=== PATIENT | male | born 1990 | race Caucasian/White ===

== ENCOUNTER 2017-06-30 08:55 | Emergency (ER) | payer MEDICARE, MEDICAID ==
[~2017-06-30] VITALS: Ht 185.4 cm; Wt 67.0 kg
[~2017-06-30 08:55] MED LIST: HYDR50TA13 PO; OLAN20TA3 PO; OMEPRAZOLE; PROZAC; TRAZ150T62 PO
[2017-06-30 09:00] VITALS: BP 131/82
[2017-06-30] MEDS ORDERED: ASPIRIN 81 MG TABLET CHEW PO ONE (09:30)
[2017-06-30] MEDS ORDERED: ASPIRIN 81 MG TABLET CHEW ONE (09:39)
[2017-06-30 09:56] LABS: HEMATOCRIT 42.2 % (39.2-51.8); HEMOGLOBIN 14.3 g/dL (13.7-18.0)
[2017-06-30 10:08] LABS: BLOOD UREA NITROGEN 14 mg/dL (7-18)
[2017-06-30 10:12] LABS: IS PT STATUS REG ER OR PRE ER? YES
[2017-06-30] MEDS ORDERED: KETOROLAC 30 MG/1 ML ONE (11:15)
[2017-06-30] MEDS ORDERED: KETOROLAC 30 MG/1 ML IVPush ONE (11:30)
== END 2017-06-30 12:22 | disposition home or self-care (01) ==
LOC: ED 09:54
DX: R07.89 Other chest pain (principal); R42 Dizziness and giddiness; K21.9 Gastro-esophageal reflux disease without esophagitis; Z88.8 Allergy status to other drugs, medicaments and biological substances; F17.210 Nicotine dependence, cigarettes, uncomplicated
CPT/HCPCS: 36415; 71020; 80048; 82040; 84484; 85025; 93005; 96374; 99285; J1885

== ENCOUNTER 2017-09-03 13:47 | Emergency (ER) | payer MEDICARE, MEDICAID ==
[~2017-09-03] VITALS: Ht 182.9 cm; Wt 67.1 kg
[2017-09-03 13:49] VITALS: BP 121/89
[2017-09-03] MEDS ORDERED: HYDROcodone/APAP 5/325 TABLET PO ONE (15:30)
[2017-09-03] MEDS ORDERED: HYDROcodone/APAP 5/325 TABLET ONE (15:43)
== END 2017-09-03 16:07 | disposition home or self-care (01) ==
LOC: ED 16:04
DX: S16.1XXA Strain of muscle, fascia and tendon at neck level, initial encounter (principal); S29.012A Strain of muscle and tendon of back wall of thorax, initial encounter; K21.9 Gastro-esophageal reflux disease without esophagitis; F31.9 Bipolar disorder, unspecified; Z88.8 Allergy status to other drugs, medicaments and biological substances; V43.53XA Car driver injured in collision with pick-up truck in traffic accident, initial encounter; Y93.89 Activity, other specified; Y99.8 Other external cause status; Y92.488 Other paved roadways as the place of occurrence of the external cause
CPT/HCPCS: 72020; 72050; 72072; 99284

== ENCOUNTER 2017-10-15 20:06 | Emergency (ER) | payer MEDICARE, MEDICAID ==
[~2017-10-15] VITALS: Ht 177.8 cm; Wt 70.0 kg
[2017-10-15] MEDS ORDERED: SODIUM CHLORIDE FLUSH 10ML SYR IVF ONE (20:30)
[2017-10-15] MEDS ORDERED: SODIUM CHLORIDE 0.9% 1,000ML IVBOLUS ONE (20:30)
[2017-10-15] MEDS ORDERED: ONDANSETRON ODT 8 MG PO ONE (20:30)
[2017-10-15] MEDS ORDERED: MAALOX/HYOSCYAMINE/LIDOCAINE 45 ML BTL PO ONE (20:30)
[2017-10-15] MEDS ORDERED: FAMOTIDINE 20 MG/2 ML IVP ONE (20:30)
[2017-10-15] MEDS ORDERED: ONDANSETRON ODT 8 MG ONE (20:46)
[2017-10-15] MEDS ORDERED: MAALOX/HYOSCYAMINE/LIDOCAINE 45 ML BTL ONE (20:46)
[2017-10-15] MEDS ORDERED: FAMOTIDINE 20 MG/2 ML ONE (20:46)
[2017-10-15 21:26] VITALS: BP 120/70
== END 2017-10-15 21:28 | disposition home or self-care (01) ==
LOC: ED 21:05
DX: J06.9 Acute upper respiratory infection, unspecified (principal); R11.2 Nausea with vomiting, unspecified; R19.7 Diarrhea, unspecified; K21.9 Gastro-esophageal reflux disease without esophagitis; J44.9 Chronic obstructive pulmonary disease, unspecified
CPT/HCPCS: 71046; 96374; 99284; J7030; S0028

== ENCOUNTER 2019-03-03 20:02 | Emergency (ER) | payer MEDICAID, MEDICARE ==
[~2019-03-03] VITALS: Ht 185.4 cm; Wt 65.0 kg
[2019-03-03 20:05] VITALS: BP 127/65
== END 2019-03-03 23:21 | disposition home or self-care (01) ==
LOC: ED 23:18
DX: F32.0 Major depressive disorder, single episode, mild (principal); F10.10 Alcohol abuse, uncomplicated; K21.9 Gastro-esophageal reflux disease without esophagitis; J44.9 Chronic obstructive pulmonary disease, unspecified; Z72.9 Problem related to lifestyle, unspecified; Z75.9 Unspecified problem related to medical facilities and other health care; Z91.14 Patient's other noncompliance with medication regimen; Z63.8 Other specified problems related to primary support group; Y90.9 Presence of alcohol in blood, level not specified
CPT/HCPCS: 36415; 80048; 80307; 85025; 99284

== ENCOUNTER 2020-01-20 00:20 | Emergency (ER) | payer MEDICARE ==
[~2020-01-20] VITALS: Ht 182.9 cm; Wt 62.0 kg
[~2020-01-20 00:20] MED LIST changes: +GABA300C10 PO; -HYDR50TA13 PO; +HYDR50TA99 PO
--- NOTE | 2020-01-20 00:35 | NUR ---
[facility] SECURED, DR TREVINO TO BEDSIDE. PT REMAINS TEARFUL
--- NOTE | 2020-01-20 00:50 | NUR ---
assumed care of pt. pt BIB [employer] on hold. pt states that he is vey intoxicated and that he "fuckin hates life right now". pt has a small abrasion to R upper posterio arm. cleaned and bandaid applied. pt yelling and swearing. attempting to re-orient patient. no other injuries. no apparent resp. distress
--- NOTE | 2020-01-20 01:00 | NUR ---
pt moved from room 4 to room 2. room secure. sitter present for safety.
[2020-01-20 01:03] LABS: BASOPHILS # (AUTO) 0.04 x10^3/uL (0-0.1); BASOPHILS % (AUTO) 1 % (0-1); EOSINOPHILS # (AUTO) 0.47 x10^3/uL (0-0.4); EOSINOPHILS % (AUTO) 9 % (1-7); LYMPHOCYTES # (AUTO) 2.65 x10^3/uL (1-3.4); LYMPHOCYTES % (AUTO) 48 % (22-44); MD NO; MEAN CORPUSCULAR HEMOGLOBIN 33.2 pg (27.5-34.5); MEAN CORPUSCULAR HGB CONC 34.2 g/dL (33.2-36.2); MEAN CORPUSCULAR VOLUME 96.9 fL (81-97); MEAN PLATELET VOLUME 8.8 fL (7.4-10.4); MONOCYTES # (AUTO) 0.45 x10^3/uL (0.2-0.8); MONOCYTES % (AUTO) 8 % (2-9); NEUTROPHILS # (AUTO) 1.96 x10^3/uL (1.8-6.8); NEUTROPHILS % (AUTO) 35 % (42-75); PLATELET COUNT 158 x10^3/uL (130-400); RED BLOOD COUNT 4.88 x10^6/uL (4.38-5.82); RED CELL DISTRIBUTION WIDTH 14.4 % (9.4-14.8)
[2020-01-20 01:12] LABS: ALBUMIN 4.1 g/dL (3.4-5.0); ANION GAP 7 mmol/L (5-15); CHLORIDE 106 mmol/L (98-107); CREATININE 0.92 mg/dL (0.7-1.3); SALICYLATE LEVEL 2.4 mg/dL (2.8-20.0)
--- NOTE | 2020-01-20 01:20 | NUR ---
urine sample has been collected and sent. warm blankets given for comfort.
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
[2020-01-20 01:53] LABS: AMPHETAMINE SCREEN, URINE Negative (Negative); BARBITURATE SCREEN, URINE Negative (Negative); BENZODIAZEPINE SCREEN, URINE Positive (Negative); CANNABINOID SCREEN, URINE Negative (Negative); COCAINE SCREEN, URINE Negative (Negative); METHADONE SCREEN, URINE Negative (Negative); OPIATE SCREEN, URINE Negative (Negative)
--- NOTE | 2020-01-20 01:55 | NUR ---
pt now calmer and more cooperative
--- NOTE | 2020-01-20 02:10 | NUR ---
pt given PO fluids and crackers
--- NOTE | 2020-01-20 02:32 | NUR ---
pt sleeping in position of comfort. no apparent distress. room secure. sitter present for safety
--- NOTE | 2020-01-20 03:45 | NUR ---
attempted to deliver food to pt bedside, pt sleeping
--- NOTE | 2020-01-20 04:45 | NUR ---
pt still seeping. no apparent distress. room secure. sitter at bedside for safety
[2020-01-20 06:02] VITALS: BP 110/61
--- NOTE | 2020-01-20 06:02 | NUR ---
pt sleeping. arousable but groggy. no new c/o. no apparent distress. room secure. sitter present for safety
--- NOTE | 2020-01-20 06:56 | NUR ---
report to Sherman VILCHIS
--- NOTE | 2020-01-20 07:34 | NUR ---
REPORT FROM JOSH
--- NOTE | 2020-01-20 08:30 | NUR ---
PT BREATHALYZER 0.805, MODETER PRESENT
--- NOTE | 2020-01-20 09:20 | NUR ---
PT GIVEN MEAL TRAY. PT STAES HE FEELS SUICIDAL
[2020-01-20] MEDS ORDERED: LORazepam 1MG TABLET ONE (10:25)
[2020-01-20] MEDS ORDERED: LORazepam 1MG TABLET PO ONE (10:30)
--- NOTE | 2020-01-20 10:44 | NUR ---
MEDICATED FOR ANXIETY,. PT STATES HE IS WDRAWLING
--- NOTE | 2020-01-20 11:43 | NUR ---
PT RESTING, ORDERED LUNCH TRAY. SITTER PRESENT
--- NOTE | 2020-01-20 12:30 | NUR ---
PT RESTING, MEAL TRAY GIVEN. SITTER PRESENT
--- NOTE | 2020-01-20 13:30 | NUR ---
PT RESTING. SITTER PRESENT
[2020-01-20] MEDS ORDERED: LORazepam 1MG TABLET PO PRN (14:00)
[2020-01-20] MEDS ORDERED: NICOTINE 21 MG/24 HR PATCH.TD24 TD SCH (14:00)
[2020-01-20] MEDS ORDERED: HYDROXYZINE PAMOATE 50MG CAP PO PRN (14:00)
--- NOTE | 2020-01-20 14:21 | NUR ---
PT RESTING, NO NEEDS AT THIS TIME. SITTER PRESENT
--- NOTE | 2020-01-20 15:00 | NUR ---
PT RESTING, WATCHING TV. SITTER PRESENT
[2020-01-20] MEDS ORDERED: NICOTINE 21 MG/24 HR PATCH.TD24 ONE (16:12)
--- NOTE | 2020-01-20 16:19 | NUR ---
REPORT TO [facility]
--- NOTE | 2020-01-20 17:36 | NUR ---
THIS TECH TRANSPORTED PT
[2020-01-20] MEDS ORDERED: TRAZ50TA66 PO (18:02)
== END 2020-01-20 17:36 ==
LOC: ED 10:21
DX: F10.129 Alcohol abuse with intoxication, unspecified (principal); Y90.9 Presence of alcohol in blood, level not specified; Z72.9 Problem related to lifestyle, unspecified; F17.200 Nicotine dependence, unspecified, uncomplicated; J44.9 Chronic obstructive pulmonary disease, unspecified
CPT/HCPCS: 36415; 80048; 80307; 82040; 85025; 99285

== ENCOUNTER 2020-01-20 13:36 | Inpatient (IN) | payer MEDICARE ==
[~2020-01-20] VITALS: Ht 182.9 cm; Wt 62.5 kg
[2020-01-20 17:24] VITALS: BP 114/81
[2020-01-20] MEDS ORDERED: TRAZODONE 50MG TABLET PO PRN (18:00)
[2020-01-20] MEDS ORDERED: TRAZ50TA66 PO (18:02)
[2020-01-20 19:48] VITALS: BP 127/89
[2020-01-20 19:58] LABS: MICROSCOPIC AUTO
[2020-01-20] MEDS: IBUPROFEN 200 MG TABLET PO PRN (21:30)
[2020-01-20] MEDS: DIAZEPAM 10 MG TABLET PO SCH (21:30)
[2020-01-20] MEDS: NICOTINE 21 MG/24 HR PATCH.TD24 TD SCH (21:30)
[2020-01-20] MEDS: ACAMPROSATE 333 MG TABLET.DR PO SCH (21:31)
[2020-01-21 07:47] VITALS: BP 128/77
[2020-01-21] MEDS: ACAMPROSATE 333 MG TABLET.DR PO SCH ×4 (08:55→23:01)
[2020-01-21] MEDS: DIAZEPAM 10 MG TABLET PO SCH ×3 (08:55→20:32)
[2020-01-21] MEDS: IBUPROFEN 200 MG TABLET PO PRN (08:56)
[2020-01-21] MEDS ORDERED: NICOTINE 21 MG/24 HR PATCH.TD24 TD SCH (09:00)
[2020-01-21] MEDS ORDERED: QUETIAPINE 25MG TABLET PO PRN (14:00)
[2020-01-21 19:04] VITALS: BP 119/79
[2020-01-21] MEDS: NICOTINE 21 MG/24 HR PATCH.TD24 TD SCH ×2 (20:32→23:00)
[2020-01-22] MEDS: IBUPROFEN 200 MG TABLET PO PRN (02:38)
[2020-01-22] MEDS: DIAZEPAM 10 MG TABLET PO SCH ×2 (02:53→08:34)
[2020-01-22 07:56] VITALS: BP 126/91
[2020-01-22] MEDS: ACAMPROSATE 333 MG TABLET.DR PO SCH (08:35)
[2020-01-22] MEDS: ACAMPROSATE 333 MG TABLET.DR PO ONE ×2 (08:48→09:00)
== END 2020-01-22 09:25 | disposition home or self-care (01) | DRG 885 ==
LOC: 3E 17:06
PROVIDERS: ADMIT Psychiatry & Neurology Psychosomatic Medicine; ATTEND Psychiatry & Neurology Psychosomatic Medicine
DX: F31.30 Bipolar disorder, current episode depressed, mild or moderate severity, unspecified (principal); E44.0 Moderate protein-calorie malnutrition; R45.851 Suicidal ideations; Z68.1 Body mass index [BMI] 19.9 or less, adult; Z88.8 Allergy status to other drugs, medicaments and biological substances; F10.20 Alcohol dependence, uncomplicated; F17.200 Nicotine dependence, unspecified, uncomplicated; F41.9 Anxiety disorder, unspecified; G47.30 Sleep apnea, unspecified; G89.29 Other chronic pain; J44.9 Chronic obstructive pulmonary disease, unspecified; M41.9 Scoliosis, unspecified; Z82.5 Family history of asthma and other chronic lower respiratory diseases; Z91.19 Patient's noncompliance with other medical treatment and regimen
CPT/HCPCS: 81001; 87086; 93005

== ENCOUNTER 2020-06-18 19:53 | Emergency (ER) | payer MEDICARE ==
[~2020-06-18] VITALS: Ht 182.9 cm; Wt 61.4 kg
[~2020-06-18 19:53] MED LIST changes: +TRAZ50TA66 PO
--- NOTE | 2020-06-18 20:08 | NUR ---
COUNTY ENGINEER AWARE OF PT. PT DENIES SI. COOPERATIVE. PLACED IN LOBBY.
[2020-06-18 21:24] VITALS: BP 125/75
--- NOTE | 2020-06-18 21:25 | NUR ---
pt states he is homeless, and has been drinking alot lately. pt states drinking 3 tall boys and 2 pints of vodka today. pt a/0 x 4. resting comfortably in [facility], [facility] evaluated
== END 2020-06-18 21:43 | disposition home or self-care (01) ==
LOC: ED 21:10
DX: J69.0 Pneumonitis due to inhalation of food and vomit (principal); F10.10 Alcohol abuse, uncomplicated; R11.2 Nausea with vomiting, unspecified; R42 Dizziness and giddiness; F17.210 Nicotine dependence, cigarettes, uncomplicated; J44.9 Chronic obstructive pulmonary disease, unspecified; K21.9 Gastro-esophageal reflux disease without esophagitis; Y90.0 Blood alcohol level of less than 20 mg/100 ml
CPT/HCPCS: 71045; 99283; 99406

== ENCOUNTER 2021-01-05 19:49 | Emergency (ER) | payer MEDICARE ==
[~2021-01-05] VITALS: Ht 182.9 cm; Wt 68.0 kg
--- NOTE | 2021-01-05 20:08 | NUR ---
Patient presents to ER c/o FB in throat. Patient states he attempted to eat a hot dog in a bun and it got stuck in his throat. Now he is having cough, diff swallowing, and pain in chest when swallowing. Patient has a hx of the same x2 years ago and wasy scoped with FB removal. Patient is in NAD. Respirations even and unlabored. Patient speaking in full word sentences. No hoarse voice, no drooling.
[2021-01-05] MEDS ORDERED: KETAMINE 10 MG/ML, 20ML IV ONE (22:00)
[2021-01-05] MEDS ORDERED: MIDAZOLAM 1 MG/ML, 5ML IVPush ONE (22:00)
[2021-01-05] MEDS ORDERED: KETAMINE 10 MG/ML, 20ML ONE (22:07)
[2021-01-05] MEDS ORDERED: MIDAZOLAM 1 MG/ML, 5ML ONE (22:21)
[2021-01-05] MEDS ORDERED: PROPOFOL 10 MG/ML, 20ML ONE (22:36)
--- NOTE | 2021-01-05 22:45 | NUR ---
Patient prepped for procedural sedation.
--- NOTE | 2021-01-05 22:55 | NUR ---
Patient tolerated procedure well. Patient AAOx4. No supp O2 required to maintain airway.
[2021-01-05] MEDS ORDERED: PROPOFOL 10 MG/ML, 20ML IVPush ONE (23:00)
[2021-01-05 23:11] VITALS: BP 103/64
--- NOTE | 2021-01-05 23:42 | NUR ---
Discharge instructions given. All questions and concerns addressed. Patient ambulatory with a steady gait. Belongings with patient.
== END 2021-01-05 23:46 | disposition home or self-care (01) ==
LOC: ED 23:37
DX: T18.128A Food in esophagus causing other injury, initial encounter (principal); K21.00 Gastro-esophageal reflux disease with esophagitis, without bleeding; F10.10 Alcohol abuse, uncomplicated; Y90.0 Blood alcohol level of less than 20 mg/100 ml; Z72.9 Problem related to lifestyle, unspecified; J44.9 Chronic obstructive pulmonary disease, unspecified; F17.200 Nicotine dependence, unspecified, uncomplicated; X58.XXXA Exposure to other specified factors, initial encounter; Y93.89 Activity, other specified; Y92.89 Other specified places as the place of occurrence of the external cause; Y99.8 Other external cause status
CPT/HCPCS: 99285

== ENCOUNTER 2021-01-12 18:43 | Emergency (ER) | payer MEDICARE, MEDICAID ==
[~2021-01-12] VITALS: Ht 182.9 cm; Wt 68.3 kg
--- NOTE | 2021-01-12 22:31 | NUR ---
[facility] REPAIR PERSON: PT. TO ROOM FROM LOBBY AT THIS TIME.
--- NOTE | 2021-01-12 22:45 | NUR ---
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 pt states he wants to quit drinking, but he can't go back to rehab or he'll get kicked out of his house. pt resting on gurney, placed in gown and placed on continuous monitoring. ERP at bedside. 20 G IV started to the right forearm, IVF running and meds given. denies needs at this time.
[2021-01-12] MEDS ORDERED: ONDANSETRON 2MG/ML, 2ML ONE (22:53)
[2021-01-12] MEDS ORDERED: LORazepam 2 MG/ML, 1ML ONE (22:53)
[2021-01-12] MEDS ORDERED: SODIUM CHLORIDE 0.9% 1,000ML IVBOLUS ONE (23:00)
[2021-01-12] MEDS ORDERED: LORazepam 2 MG/ML, 1ML IVPush ONE (23:00)
[2021-01-12] MEDS ORDERED: ONDANSETRON 2MG/ML, 2ML IVPush ONE (23:00)
[2021-01-12 23:03] LABS: BASOPHILS % (AUTO) 1 % (0-1); EOSINOPHILS % (AUTO) 2 % (1-7); LYMPHOCYTES % (AUTO) 21 % (22-44); MEAN CORPUSCULAR HEMOGLOBIN 32.3 pg (27.5-34.5); MEAN PLATELET VOLUME 8.8 fL (7.4-10.4); MONOCYTES % (AUTO) 7 % (2-9); NEUTROPHILS % (AUTO) 69 % (42-75); PLATELET COUNT 207 x10^3/uL (130-400); RED BLOOD COUNT 4.65 x10^6/uL (4.38-5.82); RED CELL DISTRIBUTION WIDTH 14.6 % (9.4-14.8)
[2021-01-12 23:08] LABS: ALBUMIN 4.1 g/dL (3.4-5.0); ANION GAP 9 mmol/L (5-15); CHLORIDE 112 mmol/L (98-107)
[2021-01-12 23:11] LABS: ALANINE AMINOTRANSFERASE 32 U/L (12-78); ALKALINE PHOSPHATASE 59 U/L (45-117); CREATININE 0.89 mg/dL (0.7-1.3); TOTAL PROTEIN 7.4 g/dL (6.4-8.2)
[2021-01-13] VITALS: BP 111/67
== END 2021-01-13 01:08 | disposition home or self-care (01) ==
LOC: ED 01-13 00:10
DX: K29.20 Alcoholic gastritis without bleeding (principal); F10.139 Alcohol abuse with withdrawal, unspecified; R45.4 Irritability and anger; K21.9 Gastro-esophageal reflux disease without esophagitis; J44.9 Chronic obstructive pulmonary disease, unspecified; F17.200 Nicotine dependence, unspecified, uncomplicated; Y90.0 Blood alcohol level of less than 20 mg/100 ml
CPT/HCPCS: 36415; 80053; 80320; 83690; 85025; 93005; 96361; 96374; 96375; 99284; J2060; J2405; J7030; G0480

== ENCOUNTER 2021-01-31 03:30 | Emergency (ER) | payer MEDICARE, MEDICAID ==
[~2021-01-31] VITALS: Ht 182.9 cm; Wt 70.0 kg
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
--- NOTE | 2021-01-31 03:46 | NUR ---
Pt c/o substernal CP that started at 0130. Pt presents intoxicated and is intermittently crying, "I don't want to go to skilled nursing." Pt also c/o PATTEN and nausea. 4mg Zofran given BODY MAN.
--- NOTE | 2021-01-31 03:54 | NUR ---
MEDS REQUESTED FROM PHARMACY.
[2021-01-31] MEDS ORDERED: FAMOTIDINE 20 MG/2 ML ONE (03:55)
[2021-01-31] MEDS ORDERED: ONDANSETRON 2MG/ML, 2ML ONE (03:55)
[2021-01-31] MEDS ORDERED: SODIUM CHLORIDE 0.9% 1,000ML IVBOLUS ONE (04:00)
[2021-01-31] MEDS ORDERED: THIAMINE 100 MG in SODIUM CHLORIDE 0.9% 50 ML IVPB ONE (04:00)
[2021-01-31] MEDS ORDERED: MAALOX/HYOSCYAMINE/LIDOCAINE 45 ML BTL PO ONE (04:00)
[2021-01-31] MEDS ORDERED: ONDANSETRON 2MG/ML, 2ML IVPush ONE (04:00)
[2021-01-31] MEDS ORDERED: FAMOTIDINE 20 MG/2 ML IVPush ONE (04:00)
[2021-01-31] MEDS ORDERED: SODIUM CHLORIDE FLUSH 10ML SYR IVF ONE (04:00)
--- NOTE | 2021-01-31 04:00 | NUR ---
PT REQUESTING MEDICATION FOR ALCOHOL CRAVINGS.
--- NOTE | 2021-01-31 04:20 | NUR ---
PT TO CT.
--- NOTE | 2021-01-31 04:49 | NUR ---
LAB AT BEDSIDE.
[2021-01-31 05:03] VITALS: BP 116/75
[2021-01-31 05:04] LABS: BASOPHILS % (AUTO) 1 % (0-1); EOSINOPHILS % (AUTO) 6 % (1-7); LYMPHOCYTES % (AUTO) 45 % (22-44); MEAN CORPUSCULAR HEMOGLOBIN 32.4 pg (27.5-34.5); MEAN CORPUSCULAR HGB CONC 33.7 g/dL (33.2-36.2); MEAN PLATELET VOLUME 8.1 fL (7.4-10.4); MONOCYTES % (AUTO) 9 % (2-9); NEUTROPHILS % (AUTO) 39 % (42-75); PLATELET COUNT 191 x10^3/uL (130-400); RED BLOOD COUNT 4.93 x10^6/uL (4.38-5.82); RED CELL DISTRIBUTION WIDTH 14.8 % (9.4-14.8)
--- NOTE | 2021-01-31 05:06 | NUR ---
REPORT TO MARLENA VILCHIS. PT RESTING ON [employer] W/ CALL LIGHT IN REACH AND SIDE RAILS UPX2. TAMMI LOVE.
[2021-01-31 05:12] LABS: ALANINE AMINOTRANSFERASE 39 U/L (12-78); ALBUMIN 3.9 g/dL (3.4-5.0); ANION GAP 7 mmol/L (5-15); CALCIUM 8.5 mg/dL (8.5-10.1); CHLORIDE 110 mmol/L (98-107); CREATININE 0.88 mg/dL (0.7-1.3)
[2021-01-31 05:17] LABS: ALKALINE PHOSPHATASE 68 U/L (45-117); BILIRUBIN,TOTAL 0.6 mg/dL (0.2-1.0); TOTAL PROTEIN 7.3 g/dL (6.4-8.2); TROPONIN I < 0.015 ng/mL (0.000-0.045)
--- NOTE | 2021-01-31 05:48 | NUR ---
PT REQUESTING TO LEAVE AT THIS TIME, AND [facility] MED BAG IS ALMOST DONE. ATTEMPTED TO CONVINCE PT TO STAY AND ALLOW ALL THE MEDS TO GO IN. PT SAYS HE'S GOT TO GO, HE HAS TO WORK THIS MORNING. MD ADVISED AND D/C PAPERS PRINTED, AND PT THIAMINE BAG FINISHED, AND PIV D/C'D WITHOUT ISSUE AND CATH TIP INTACT. F/U AND D/C INSTRUCTIONS GIVEN TO PT WITH PRESCRIPTIONS AND HE V/U. PT AMBULATED TO DISCHARGE DESK. SECURITY ADVISED, SO THEY CAN RETURN THE ITEMS THAT ARE ON HOLD WITH SECURITY, AT THE EXIT.
== END 2021-01-31 05:52 | disposition home or self-care (01) ==
LOC: ED 05:20
DX: K29.20 Alcoholic gastritis without bleeding (principal); R10.13 Epigastric pain; F10.129 Alcohol abuse with intoxication, unspecified; R07.89 Other chest pain; K21.9 Gastro-esophageal reflux disease without esophagitis; R51.9 Headache, unspecified; J44.9 Chronic obstructive pulmonary disease, unspecified; F17.200 Nicotine dependence, unspecified, uncomplicated; Y90.0 Blood alcohol level of less than 20 mg/100 ml
CPT/HCPCS: 36415; 70450; 71045; 80053; 80320; 83690; 84484; 85025; 93005; 96361; 96374; 96375; 99285; J2405; J7030; G0480

== ENCOUNTER 2021-02-19 02:49 | Emergency (ER) | payer MEDICARE, MEDICAID ==
[~2021-02-19] VITALS: Ht 182.9 cm; Wt 69.6 kg
[2021-02-19] MEDS ORDERED: MAALOX/HYOSCYAMINE/LIDOCAINE 45 ML BTL ONE (03:21)
[2021-02-19] MEDS ORDERED: MAALOX/HYOSCYAMINE/LIDOCAINE 45 ML BTL PO ONE (03:30)
[2021-02-19 04:22] VITALS: BP 128/72
--- NOTE | 2021-02-19 04:22 | NUR ---
Patient given discharge instructions and they have confirmed that they understand the instructions. Patient ambulatory with steady gait. NAD, all questions answered appropriately, denies additional needs at this time. No personal belongings left in room after discharge.
== END 2021-02-19 04:24 | disposition home or self-care (01) ==
LOC: ED 04:00
DX: F19.122 Other psychoactive substance abuse with intoxication with perceptual disturbances (principal); R07.89 Other chest pain; F17.210 Nicotine dependence, cigarettes, uncomplicated; R94.31 Abnormal electrocardiogram [ECG] [EKG]; J44.9 Chronic obstructive pulmonary disease, unspecified; K21.9 Gastro-esophageal reflux disease without esophagitis; Y90.0 Blood alcohol level of less than 20 mg/100 ml
CPT/HCPCS: 93005; 99283; 99406

== ENCOUNTER 2021-02-19 13:46 | Emergency (ER) | payer MEDICARE, MEDICAID ==
[~2021-02-19] VITALS: Ht 182.9 cm; Wt 68.8 kg
--- NOTE | 2021-02-19 14:09 | NUR ---
Pt reports seen here this morning around 0100 after drinking Fireball and taking Suboxone. Pt c/o continued CP, SOB, difficulty swallowing, N/V. Pt speaking in full sentences, resp even and unlabor
--- NOTE | 2021-02-19 14:09 | NUR ---
xr at bedside
--- NOTE | 2021-02-19 14:10 | NUR ---
pt to radiology
--- NOTE | 2021-02-19 14:30 | NUR ---
pt back from radiology, pt a&o, resps even and unlabored, vss, all momitors attached, nsr. pt presents anxious but cooperative.
--- NOTE | 2021-02-19 14:40 | NUR ---
[facility] at bedside for eval
[2021-02-19] MEDS ORDERED: FAMOTIDINE 20 MG TABLET ONE (14:47)
[2021-02-19] MEDS ORDERED: LORazepam 1MG TABLET ONE (14:48)
[2021-02-19] MEDS ORDERED: MAALOX/HYOSCYAMINE/LIDOCAINE 45 ML BTL ONE (14:48)
--- NOTE | 2021-02-19 14:52 | NUR ---
pt medicated per order, tolerated well. vss, nadn.
[2021-02-19] MEDS ORDERED: MAALOX/HYOSCYAMINE/LIDOCAINE 45 ML BTL PO ONE (15:00)
[2021-02-19] MEDS ORDERED: FAMOTIDINE 20 MG TABLET PO/NG ONE (15:00)
[2021-02-19] MEDS ORDERED: LORazepam 1MG TABLET PO ONE (15:00)
[2021-02-19 15:42] VITALS: BP 103/65
--- NOTE | 2021-02-19 15:45 | NUR ---
TASK RN: PT RESTING ON GURNEY. NADN. WEBERS. PT ABLE TO TOLERATE PO FLUIDS.
== END 2021-02-19 16:16 | disposition home or self-care (01) ==
LOC: ED 14:18
DX: K21.00 Gastro-esophageal reflux disease with esophagitis, without bleeding (principal); R13.10 Dysphagia, unspecified; R94.31 Abnormal electrocardiogram [ECG] [EKG]; J44.9 Chronic obstructive pulmonary disease, unspecified; F17.200 Nicotine dependence, unspecified, uncomplicated
CPT/HCPCS: 70360; 71045; 93005; 99284

== ENCOUNTER 2021-02-24 20:36 | Observation (INO) | payer MEDICARE, MEDICAID ==
[~2021-02-24] VITALS: Ht 182.9 cm; Wt 67.4 kg
[2021-02-24] MEDS ORDERED: LORazepam 1MG TABLET PO ONE (21:30)
[2021-02-24 22:00] LABS: AMPHETAMINE SCREEN, URINE Negative (Negative); BARBITURATE SCREEN, URINE Negative (Negative); BENZODIAZEPINE SCREEN, URINE Positive (Negative); CANNABINOID SCREEN, URINE Negative (Negative); COCAINE SCREEN, URINE Negative (Negative); METHADONE SCREEN, URINE Negative (Negative); OPIATE SCREEN, URINE Negative (Negative)
[2021-02-24 22:11] LABS: BASOPHILS % (AUTO) 1 % (0-1); EOSINOPHILS % (AUTO) 8 % (1-7); LYMPHOCYTES % (AUTO) 44 % (22-44); MEAN CORPUSCULAR HGB CONC 33.9 g/dL (33.2-36.2); MONOCYTES % (AUTO) 12 % (2-9); NEUTROPHILS % (AUTO) 35 % (42-75); PLATELET COUNT 178 x10^3/uL (130-400); RED BLOOD COUNT 4.74 x10^6/uL (4.38-5.82); RED CELL DISTRIBUTION WIDTH 15.6 % (9.4-14.8)
[2021-02-24 22:22] LABS: ALBUMIN 3.7 g/dL (3.4-5.0); ANION GAP 7 mmol/L (5-15); CALCIUM 8.6 mg/dL (8.5-10.1); CHLORIDE 107 mmol/L (98-107)
[2021-02-24] MEDS ORDERED: LORazepam 1MG TABLET ONE (22:22)
[2021-02-24 22:26] LABS: ALANINE AMINOTRANSFERASE 26 U/L (12-78); ALKALINE PHOSPHATASE 62 U/L (45-117); BILIRUBIN,TOTAL 0.7 mg/dL (0.2-1.0); CREATININE 0.93 mg/dL (0.7-1.3); TOTAL PROTEIN 7.1 g/dL (6.4-8.2)
[2021-02-24 22:27] LABS: SALICYLATE LEVEL < 1.7 mg/dL (2.8-20.0)
--- NOTE | 2021-02-24 23:28 | NUR ---
throughput RN: pt packet [facility]ed to [facility], [facility] for possible placement. [facility] declined stating their staffing is down for tomorrow
--- NOTE | 2021-02-25 00:13 | NUR ---
[facility] ([facility]) ACCEPTING;
--- NOTE | 2021-02-25 00:20 | NUR ---
Report given to DENG Antonio [phone] [facility] ([facility])
--- NOTE | 2021-02-25 00:31 | NUR ---
Pt provided with sandwich, PO fluids including juice, soda and water.
--- NOTE | 2021-02-25 01:00 | NUR ---
Pt resting at this time, watching TV. Denies needs
[2021-02-25 01:17] VITALS: BP 117/74
--- NOTE | 2021-02-25 02:05 | NUR ---
Break RN: patient sleeping in [facility]. Respirations even and unlabored. Room secured, belongings locked in cabinet. Awaiting [facility] transport.
--- NOTE | 2021-02-25 03:00 | NUR ---
Patient sleeping in gurney. Respirations even and unlabored. Room secured, belongings locked in cabinet. Pt denies further needs.
--- NOTE | 2021-02-25 04:00 | NUR ---
Patient sleeping in gurney. Respirations even and unlabored. Room secured, belongings locked in cabinet. Pt denies further needs.
--- NOTE | 2021-02-25 05:00 | NUR ---
Patient sleeping in gurney. Respirations even and unlabored. Room secured, belongings locked in cabinet. Pt denies further needs.
[2021-02-25] MEDS ORDERED: LORazepam 1MG TABLET PO PRN (05:30)
--- NOTE | 2021-02-25 06:00 | NUR ---
Patient sleeping in gurney. Respirations even and unlabored. Room secured, belongings locked in cabinet. Pt denies further needs.
[2021-02-25] MEDS ORDERED: LORazepam 1MG TABLET ONE (07:00)
--- NOTE | 2021-02-25 07:02 | NUR ---
Note undone in [facility] - 02/25/21 at 0716 by [email or web address] Report given to [facility] staff. Pt medicated w/ 2mg PO Ativan prior to being transferred at pr request due to anxiety. Pt being transferred with all belongings, paperwork, and legal 2 thousand hold orinigal copy.
--- NOTE | 2021-02-25 07:04 | NUR ---
Report given to [facility] staff. Pt medicated w/ 2mg PO Ativan prior to being transferred at pr request due to anxiety. Pt being transferred with all belongings, paperwork, and legal 2 thousand hold orinigal copy.
== END 2021-02-25 07:17 | disposition short-term general hospital (02) ==
LOC: ED 22:40 → EDIP 02-25 05:22
PROVIDERS: ADMIT Emergency Medicine; ATTEND Emergency Medicine
DX: F10.239 Alcohol dependence with withdrawal, unspecified (principal); R45.851 Suicidal ideations; F31.9 Bipolar disorder, unspecified; K21.9 Gastro-esophageal reflux disease without esophagitis; J44.9 Chronic obstructive pulmonary disease, unspecified; F17.200 Nicotine dependence, unspecified, uncomplicated; Z91.19 Patient's noncompliance with other medical treatment and regimen; Z79.899 Other long term (current) drug therapy
CPT/HCPCS: 36415; 80053; 80299; 80307; 80329; 85025; 93005; 99284; G0378; 80320; G0480

== ENCOUNTER 2021-03-11 01:44 | Emergency (ER) | payer MEDICARE, MEDICAID ==
[~2021-03-11] VITALS: Ht 182.9 cm; Wt 67.1 kg
[2021-03-11 03:09] VITALS: BP 141/78
--- NOTE | 2021-03-11 03:40 | NUR ---
ATTEMPTED TO DISCHARGE PATIENT WHO STATES "YOU ARE JUST GOING TO DISCHARGE ME, I AM ASKING FOR HELP AND NO ONE IS HELPING ME." WILL MAKE [facility] AWARE.
--- NOTE | 2021-03-11 04:03 | NUR ---
PATIENT REFUSING TO TAKE DISCHARGE PAPERWORK STATING THAT WE ARE NOT HELPING HIM. PATIENT WALKED OUT OF ER CURSING AND THROWING HIS HANDS UP STATING HE WILL NOT BE COMING BACK TO THIS HOSPITAL AGAIN BECAUSE WE DIDNT HELP HIM.
== END 2021-03-11 04:06 | disposition home or self-care (01) ==
LOC: ED 01:46
DX: F10.120 Alcohol abuse with intoxication, uncomplicated (principal); R00.0 Tachycardia, unspecified; Z72.9 Problem related to lifestyle, unspecified; Y90.0 Blood alcohol level of less than 20 mg/100 ml
CPT/HCPCS: 93005; 99283